=== PATIENT | female | born 1970 | race Caucasian/White ===

== ENCOUNTER 2022-09-15 10:19 | Inpatient (IN) | payer BC ==
[2022-09-13 17:08] VITALS: BMI 32.0
[2022-09-15] MEDS ORDERED: BUPIVACAINE LIPOSOME/PF (EXPAREL) 266 MG/20 ML VIAL ONE (14:06)
[2022-09-15] MEDS ORDERED: ACETAMINOPHEN INJECTION 100 ML IVPB ONE (14:07)
[2022-09-15] MEDS ORDERED: BUPIVACAINE HCL/PF 0.5% (5MG/ML) 10 ML VIAL ONE ×2 (14:07)
[2022-09-15] MEDS ORDERED: MIDAZOLAM HCL 2 MG/2 ML SINGLE DOSE VIAL ONE (14:13)
[2022-09-15] MEDS ORDERED: PROPOFOL 60 ML ONE (14:13)
[2022-09-15] MEDS ORDERED: KETAMINE HCL 200 MG/20 ML VIAL ONE (14:32)
[2022-09-15] MEDS ORDERED: TRANEXAMIC ACID 1000 MG/10 ML VIAL ONE ×2 (14:48→16:40)
[2022-09-15] MEDS ORDERED: ceFAZolin SODIUM 1 GM VIAL ONE ×3 (14:48→17:12)
[2022-09-15] MEDS ORDERED: VANCOMYCIN 1,000 MG VIAL (RESTRICTED TO ID ONLY) ONE (14:48)
[2022-09-15] MEDS ORDERED: PROPOFOL 20 ML ONE ×2 (16:19→17:04)
[2022-09-15] MEDS ORDERED: MAG HYDROX/AL HYDROX/SIMETH 30 ML UNIT-DOSE CUP PO PRN (17:28)
[2022-09-15] MEDS ORDERED: ONDANSETRON 4 MG/2 ML VIAL IVPUSH PRN (17:28)
[2022-09-15] MEDS ORDERED: MAGNESIUM HYDROX 2400MG/30ML ORAL SUSPENSION 30 ML CUP PO PRN (17:28)
[2022-09-15] MEDS ORDERED: LACTATED RINGERS SOLUTION 1,000 ML IV SCH (17:30)
[2022-09-15] MEDS ORDERED: ACETAMINOPHEN 325 MG TABLET (FP) PO PRN (17:46)
[2022-09-15] MEDS ORDERED: FENTANYL CITRATE/PF 50 MCG/ML VIAL ONE ×2 (17:48→19:01)
[2022-09-15] MEDS ORDERED: FENTANYL CITRATE/PF 50 MCG/ML VIAL IVPUSH PRN (17:58)
[2022-09-15] MEDS ORDERED: oxyCODONE HCL 5 MG TABLET ONE (18:31)
[2022-09-15] MEDS: oxyCODONE HCL 5 MG TABLET PO PRN ×2 (18:32→21:13)
[2022-09-15] MEDS ORDERED: ONDANSETRON 4 MG/2 ML VIAL ONE (18:53)
[2022-09-15] MEDS ORDERED: PROMETHAZINE HCL 25 MG/1 ML VIAL ONE (18:56)
[2022-09-15] MEDS ORDERED: PROMETHAZINE HCL 25 MG/1 ML VIAL IVPUSH ONE (19:15)
[2022-09-15] MEDS: CELECOXIB 200 MG CAPSULE PO SCH (21:12)
[2022-09-15] MEDS: SENNOSIDES/DOCUSATE COMBO (SENNA PLUS) TABLET (UD) PO SCH (21:13)
[2022-09-15] MEDS: ASPIRIN COATED 81 MG TABLET.EC PO SCH (21:13)
[2022-09-16] MEDS: CEFAZOLIN SODIUM 2 GM in DEXTROSE 5%-WATER 100 ML IVPB SCH ×3 (00:25→05:58)
[2022-09-16] MEDS: oxyCODONE HCL 5 MG TABLET PO PRN ×3 (06:00→15:38)
[2022-09-16] MEDS ORDERED: LORATADINE 10 MG TABLET PO PRN (06:02)
[2022-09-16 08:16] LABS: CALCIUM 8.3 mg/dl (8.5-10); CREATININE 0.5 mg/dl (0.55-1.3)
[2022-09-16 08:24] LABS: HEMATOCRIT 35.2 % (32.4-45.2); HEMOGLOBIN 12.1 G/dL (10.7-15.3); MCH 30.6 pg (25.7-33.7); MCHC 34.2 g/dl (32.0-36.0); MEAN CELL VOLUME 89.3 fl (80-96); MEAN PLT VOLUME 7.7 fl (7.5-11.1); PLATELET COUNT 226.6 10^3/uL (134-434); RBC 3.94 10^6/uL (3.60-5.2); RDW 12.9 % (11.6-15.6); WHITE BLOOD COUNT 8.6 10^3/uL (4.0-10.8)
[2022-09-16] MEDS: CHOLECALCIFEROL (VIT D3 5000 UNITS) 125 MCG TAB PO SCH (11:35)
[2022-09-16] MEDS: SENNOSIDES/DOCUSATE COMBO (SENNA PLUS) TABLET (UD) PO SCH ×2 (11:35→21:36)
[2022-09-16] MEDS: CELECOXIB 200 MG CAPSULE PO SCH ×2 (11:35→21:36)
[2022-09-16] MEDS: MULTIVITAMINS (DAILY MVI) TABLET (FP) PO SCH (11:35)
[2022-09-16] MEDS: ASPIRIN COATED 81 MG TABLET.EC PO SCH ×2 (11:36→21:36)
[2022-09-16] MEDS: PANTOPRAZOLE 40 MG TABLET PO SCH (11:36)
[2022-09-16] MEDS ORDERED: oxyCODONE HCL 5 MG TABLET PO PRN ×2 (20:12→20:16)
[2022-09-17 08:40] LABS: HEMATOCRIT 34.4 % (32.4-45.2); HEMOGLOBIN 11.6 G/dL (10.7-15.3); MCH 29.9 pg (25.7-33.7); MCHC 33.7 g/dl (32.0-36.0); MEAN CELL VOLUME 88.8 fl (80-96); MEAN PLT VOLUME 7.9 fl (7.5-11.1); PLATELET COUNT 203.3 10^3/uL (134-434); RBC 3.87 10^6/uL (3.60-5.2); RDW 13.4 % (11.6-15.6); WHITE BLOOD COUNT 8.1 10^3/uL (4.0-10.8)
[2022-09-17] MEDS: MULTIVITAMINS (DAILY MVI) TABLET (FP) PO SCH (10:35)
[2022-09-17] MEDS: CELECOXIB 200 MG CAPSULE PO SCH (10:35)
[2022-09-17] MEDS: PANTOPRAZOLE 40 MG TABLET PO SCH (10:36)
[2022-09-17] MEDS: SENNOSIDES/DOCUSATE COMBO (SENNA PLUS) TABLET (UD) PO SCH (10:36)
[2022-09-17] MEDS: CHOLECALCIFEROL (VIT D3 5000 UNITS) 125 MCG TAB PO SCH (10:36)
[2022-09-17] MEDS: ASPIRIN COATED 81 MG TABLET.EC PO SCH (10:36)
[2022-09-17 18:13] VITALS: BP 124/64; PULSE 97; RESP 16; TEMP 98.7
== END 2022-09-17 18:13 | disposition home or self-care (01) | DRG 470 ==
LOC: FASUSAT 10:19 → FM/S 19:47
PROVIDERS: ADMIT Orthopaedic Surgery Orthopaedic Surgery of the Spine; ATTEND Orthopaedic Surgery Orthopaedic Surgery of the Spine
PROC: 0SRC0J9 Replacement of Right Knee Joint with Synthetic Substitute, Cemented, Open Approach (ICD-10-PCS; principal; 2022-09-15 15:22)
DX: M17.11 Unilateral primary osteoarthritis, right knee (principal); G56.00 Carpal tunnel syndrome, unspecified upper limb; E55.9 Vitamin D deficiency, unspecified; J30.9 Allergic rhinitis, unspecified; E78.5 Hyperlipidemia, unspecified; E66.9 Obesity, unspecified; Z68.32 Body mass index [BMI] 32.0-32.9, adult
CPT/HCPCS: 36415; 71045-TC-FY; 73560-TC-RT-FY; 80048; 81003; 81015; 85027; 88305-TC; 88311-TC; 94760; 97010-GP; 97116-GP; 97162-GP; C1713; C1776

== ENCOUNTER 2023-01-13 12:14 | Day surgery (SDC) | payer BC ==
[2023-01-03 16:11] VITALS: BMI 32.9
[2023-01-13] MEDS ORDERED: BUPIVACAINE HCL/PF 0.5% (5 MG/ML) 30 ML VIAL IJ ONE (12:55)
[2023-01-13] MEDS ORDERED: MIDAZOLAM HCL 2 MG/2 ML SINGLE DOSE VIAL ONE ×2 (12:56→13:46)
[2023-01-13] MEDS ORDERED: BUPIVACAINE LIPOSOME/PF (EXPAREL) 266 MG/20 ML VIAL ONE (12:56)
[2023-01-13] MEDS ORDERED: PROPOFOL 80 ML ONE (13:11)
[2023-01-13] MEDS ORDERED: BUPIVACAINE HCL 50 ML ONE (13:20)
[2023-01-13] MEDS ORDERED: ONDANSETRON 4 MG/2 ML VIAL IVPUSH PRN ×2 (13:45→16:10)
[2023-01-13] MEDS ORDERED: LACTATED RINGERS SOLUTION 1,000 ML IV SCH ×2 (13:45→16:15)
[2023-01-13] MEDS ORDERED: MAG HYDROX/AL HYDROX/SIMETH 30 ML UNIT-DOSE CUP PO PRN (16:10)
[2023-01-13] MEDS ORDERED: MAGNESIUM HYDROX 2400MG/30ML ORAL SUSPENSION 30 ML CUP PO PRN (16:10)
[2023-01-13] MEDS ORDERED: ACETAMINOPHEN INJECTION 100 ML IVPB ONE (16:14)
[2023-01-13] MEDS ORDERED: PROMETHAZINE HCL 25 MG/1 ML VIAL IVPB PRN (16:15)
[2023-01-13] MEDS: ACETAMINOPHEN 1000 MG/100 ML BAG IVPB ONE (16:17)
[2023-01-13] MEDS ORDERED: ONDANSETRON 4 MG/2 ML VIAL ONE (16:35)
[2023-01-13] MEDS ORDERED: FENTANYL CITRATE/PF 50 MCG/ML VIAL ONE (16:36)
[2023-01-13] MEDS: oxyCODONE HCL 5 MG TABLET PO PRN (18:34)
[2023-01-13] MEDS: CEFAZOLIN SODIUM 2 GM in DEXTROSE 5%-WATER 100 ML IVPB SCH (21:41)
[2023-01-13] MEDS: CELECOXIB 200 MG CAPSULE PO SCH (21:41)
[2023-01-13] MEDS: SENNOSIDES/DOCUSATE COMBO (SENNA PLUS) TABLET (UD) PO SCH (21:42)
[2023-01-13] MEDS: oxyCODONE HCL 10 MG SUSTAINED ACTING TABLET PO SCH (21:42)
[2023-01-13] MEDS: ASPIRIN COATED 81 MG TABLET.EC PO SCH (21:42)
[2023-01-13 22:51] VITALS: RESP 18
[2023-01-14] MEDS: oxyCODONE HCL 5 MG TABLET PO PRN ×5 (00:18→22:06)
[2023-01-14] MEDS: CEFAZOLIN SODIUM 2 GM in DEXTROSE 5%-WATER 100 ML IVPB SCH ×2 (03:53→10:24)
[2023-01-14 08:57] LABS: CALCIUM 9.1 mg/dl (8.5-10); CREATININE 0.8 mg/dl (0.55-1.3)
[2023-01-14 09:14] LABS: HEMATOCRIT 36.7 % (32.4-45.2); HEMOGLOBIN 12.6 GM/dL (10.7-15.3); MCHC 34.4 g/dl (32.0-36.0); MEAN CELL VOLUME 84.4 fl (80-96); MEAN PLT VOLUME 7.9 fl (7.5-11.1); PLATELET COUNT 231 10^3/uL (134-434); RBC 4.35 M/mm3 (3.60-5.2); RDW 13.6 % (11.6-15.6); WHITE BLOOD COUNT 9.5 K/mm3 (4.0-10.0)
[2023-01-14] MEDS: ACETAMINOPHEN 1000 MG/100 ML BAG IVPB ONE (10:08)
[2023-01-14] MEDS: oxyCODONE HCL 10 MG SUSTAINED ACTING TABLET PO SCH ×2 (10:31→22:06)
[2023-01-14] MEDS: PANTOPRAZOLE 40 MG TABLET PO SCH (10:32)
[2023-01-14] MEDS: ASPIRIN COATED 81 MG TABLET.EC PO SCH ×2 (10:32→22:06)
[2023-01-14] MEDS: CELECOXIB 200 MG CAPSULE PO SCH ×2 (10:32→22:07)
[2023-01-14] MEDS: SENNOSIDES/DOCUSATE COMBO (SENNA PLUS) TABLET (UD) PO SCH ×2 (10:32→22:06)
[2023-01-15] MEDS: oxyCODONE HCL 10 MG SUSTAINED ACTING TABLET PO SCH (10:06)
[2023-01-15] MEDS: PANTOPRAZOLE 40 MG TABLET PO SCH (10:06)
[2023-01-15] MEDS: ASPIRIN COATED 81 MG TABLET.EC PO SCH (10:06)
[2023-01-15] MEDS: SENNOSIDES/DOCUSATE COMBO (SENNA PLUS) TABLET (UD) PO SCH (10:06)
[2023-01-15] MEDS: CELECOXIB 200 MG CAPSULE PO SCH (10:06)
[2023-01-15 10:15] VITALS: PULSE 88
[2023-01-15 10:37] LABS: HEMATOCRIT 36.3 % (32.4-45.2); HEMOGLOBIN 12.1 GM/dL (10.7-15.3); MCH 28.3 pg (25.7-33.7); MCHC 33.3 g/dl (32.0-36.0); MEAN CELL VOLUME 84.9 fl (80-96); MEAN PLT VOLUME 8.2 fl (7.5-11.1); PLATELET COUNT 220 10^3/uL (134-434); RBC 4.28 M/mm3 (3.60-5.2); RDW 13.6 % (11.6-15.6)
[2023-01-15 13:14] VITALS: BP 102/56; TEMP 98.6
== END 2023-01-15 14:30 | disposition home or self-care (01) ==
LOC: FASU 12:14 → FM/S 18:27 → FASU 01-15 14:30
PROVIDERS: ATTEND Orthopaedic Surgery Orthopaedic Surgery of the Spine
PROC: 0MNP0ZZ Release Left Knee Bursa and Ligament, Open Approach (ICD-10-PCS; 2023-01-13)
PROC: 0SRD0J9 Replacement of Left Knee Joint with Synthetic Substitute, Cemented, Open Approach (ICD-10-PCS; principal; 2023-01-13 13:59)
DX: M17.12 Unilateral primary osteoarthritis, left knee (principal)
CPT/HCPCS: 27425; 27447; C1776; 36415; 73560-TC-LT-FY; 80048; 85027; 88305-TC; 88311-TC; 94760; 97010-GP; 97116-GP; 97162-GP; C1713